=== PATIENT | male | born 2000 | race Caucasian/White ===

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

== ENCOUNTER 2021-07-25 01:18 | Inpatient (IN) | payer OTHER, SELFPAY ==
[2021-07-25] VITALS (12 sets, daily range): BP systolic 96–125; BP diastolic 51–94
[~2021-07-25] VITALS: Ht 172.7 cm; Wt 58.9 kg
[2021-07-25] MEDS ORDERED: NS 1,000 ML IV ONE (01:20)
[2021-07-25] MEDS ORDERED: diphenhydrAMINE 50MG/ML VIAL (J1200) IM ONE (01:20)
[2021-07-25] MEDS ORDERED: HALOPERIDOL 5MG/ML VIAL (J1630 PER 1) IM ONE (01:20)
[2021-07-25] MEDS ORDERED: LORazepam 2 MG/ML VIAL IM ONE (01:20)
[2021-07-25] MEDS ORDERED: LORazepam 2 MG/ML VIAL As Ordered ONE (01:21)
[2021-07-25] MEDS ORDERED: HALOPERIDOL 5MG/ML VIAL (J1630 PER 1) As Ordered ONE (01:21)
[2021-07-25] MEDS ORDERED: diphenhydrAMINE 50MG/ML VIAL (J1200) As Ordered ONE (01:21)
[2021-07-25] MEDS ORDERED: LORazepam 2 MG/ML VIAL IV STA (01:35)
[2021-07-25 01:48] LABS: BASO % 0.3 % (0.0-1.0); EOS % 0.2 % (0.0-3.0); HEMOGLOBIN 16.3 g/dl (13.5-17.5); LYMPH # 2.9 10^3/uL (1.5-5.0); LYMPH % 32.8 % (24.0-44.0); MEAN CORPUSCULAR HEMOGLOBIN 30.8 pg (27.0-33.0); MEAN CORPUSCULAR HGB CONC 34.7 g/dl (32.0-36.5); MEAN CORPUSCULAR VOLUME 88.8 fl (80.0-96.0); MONO # 0.6 10^3/uL (0.0-0.8); MONO % 7.2 % (2.0-8.0); NEUTROPHILS # 5.2 10^3/uL (1.5-8.5); NEUTROPHILS % 59.2 % (36.0-66.0); PLATELET COUNT, AUTOMATED 284 10^3/uL (150-450); RED BLOOD COUNT 5.29 10^6/uL (4.30-6.10); WHITE BLOOD COUNT 8.7 10^3/uL (4.0-10.0)
[2021-07-25] MEDS ORDERED: ETOMIDATE INJ 20MG/10ML VIAL IV STA (01:59)
[2021-07-25] MEDS ORDERED: ROCURONIUM BROMIDE 50 MG/5 ML VIAL IV SCH ×2 (02:00→03:25)
[2021-07-25] MEDS ORDERED: PROPOFOL 1,000 MG/100 ML VIAL As Ordered ONE (02:01)
[2021-07-25] MEDS: propofoL 1,000 MG in IV 1 EA IV SCH ×5 (02:02→18:22)
[2021-07-25 02:17] LABS: ACETAMINOPHEN LEVEL < 2.0 UG/ML (10.0-30.0); ALBUMIN 5.4 GM/DL (3.2-5.2); ALT/SGPT 26 U/L (12-78); BILIRUBIN,DIRECT 0.1 MG/DL (0.0-0.2); BILIRUBIN,TOTAL 0.4 MG/DL (0.2-1.0); BLOOD UREA NITROGEN 14 MG/DL (7-18); CALCIUM LEVEL 9.8 MG/DL (8.5-10.1); CARBON DIOXIDE LEVEL 24 MEQ/L (21-32); CHLORIDE LEVEL 105 MEQ/L (98-107); CPK CREATINE PHOSPHOKINASE 215 U/L (39-308); CREATININE FOR GFR 1.28 MG/DL (0.70-1.30); ETHYL ALCOHOL (ETHANOL) 0.228 % (0.000-0.010); GLOMERULAR FILTRATION RATE > 60.0 (>60); GLUCOSE, FASTING 126 MG/DL (70-100); POTASSIUM SERUM 3.4 MEQ/L (3.5-5.1); SALICYLATE LEVEL < 1.7 MG/DL (5.0-30.0); SODIUM LEVEL 145 MEQ/L (136-145); TOTAL PROTEIN 8.7 GM/DL (6.4-8.2)
[2021-07-25 02:50] LABS: ABG BASE EXCESS -3.5 (-2.0-2.0); ABG HCO3 19.4 MEQ/L (22.0-26.0); ABG O2 SATURATION 99.2 % (95.0-99.0); ABG PARTIAL PRESSURE CO2 29.5 mmHg (35.0-45.0); ABG PARTIAL PRESSURE O2 258.1 mmHg (75.0-100.0); ABG STANDARD HCO3 21.6 MEQ/L (22.0-26.0); ABG TOTAL CO2 20.3 MEQ/L (22.0-29.0); ABG pH (ARTERIAL) 7.435 UNITS (7.350-7.450)
--- NOTE | 2021-07-25 02:58 | REPVR ---
PROCEDURE INFORMATION: Exam: XR Chest Exam date and time: 07/25/2021 2:18 AM Age: 21 years old Clinical indication: Device placement; Other: Post intubation TECHNIQUE: Imaging protocol: XR of the chest. Views: 1 view. COMPARISON: No relevant prior studies available. FINDINGS: Tubes, catheters and devices: ET tube in position with the tip at the cephalad margin of the clavicular heads, approximately 5.2 cm above the chau. NG tube extending into the stomach. Lungs: Unremarkable. No consolidation. Pleural spaces: Unremarkable. No pleural effusion. No pneumothorax. Heart/Mediastinum: Unremarkable. No cardiomegaly. Bones/joints: Unremarkable. IMPRESSION: 1. ET tube with the tip at the cephalad margins of the clavicular heads, approximately 5.2 cm above the chau. 2. NG tube extending into the stomach. 3. Otherwise negative chest. Electronically signed by: Sudhakar Rincon On 07/25/2021 02:57:46 AM
--- NOTE | 2021-07-25 03:13 | REPVR ---
PROCEDURE INFORMATION: Exam: CT Head Without Contrast Exam date and time: 07/25/2021 3:05 AM Age: 21 years old Clinical indication: Injury or trauma; Fall; Blunt trauma (contusions or hematomas); Additional info: Trauma, AMS TECHNIQUE: Imaging protocol: Computed tomography of the head without contrast. Radiation optimization: All CT scans at this facility use at least one of these dose optimization techniques: automated exposure control; mA and/or kV adjustment per patient size (includes targeted exams where dose is matched to clinical indication); or iterative reconstruction. COMPARISON: No relevant prior studies available. FINDINGS: Tubes, catheters and devices: ET tube and OG tube in position. Brain: Normal. No hemorrhage. Unremarkable white matter. No mass effect. Cerebral ventricles: No ventriculomegaly. Paranasal sinuses: Visualized sinuses are unremarkable. No fluid levels. Mastoid air cells: Visualized mastoid air cells are well aerated. Bones/joints: Unremarkable. No acute fracture. Soft tissues: Slight frontal scalp soft tissue swelling with evidence of puncture wound. IMPRESSION: 1. ET tube and OG tube in position. 2. Slight midline frontal scalp soft tissue swelling with evidence of puncture wound. 3. Otherwise negative noncontrast head CT. Electronically signed by: Sudhakar Rincon On 07/25/2021 03:13:04 AM
[2021-07-25] MEDS ORDERED: NS 1,770 ML in IV 1 EA IV ONE (03:15)
[2021-07-25] MEDS ORDERED: MIDAZOLAM INJ 2MG/2ML VIAL (J2250 PER 1MG) IV ONE ×2 (03:15→04:35)
[2021-07-25] MEDS ORDERED: MIDAZOLAM HCL 100 MG in D5W 80 ML IV SCH ×2 (03:15→04:00)
[2021-07-25] MEDS ORDERED: REFRIGERATOR IV KEYS XX PRN ×2 (03:15→06:50)
--- NOTE | 2021-07-25 03:16 | REPVR ---
PROCEDURE INFORMATION: Exam: CT Cervical Spine Without Contrast Exam date and time: 07/25/2021 3:05 AM Age: 21 years old Clinical indication: Injury or trauma; Fall; Blunt trauma; Additional info: Trauma, AMS TECHNIQUE: Imaging protocol: Computed tomography images of the cervical spine without contrast. Radiation optimization: All CT scans at this facility use at least one of these dose optimization techniques: automated exposure control; mA and/or kV adjustment per patient size (includes targeted exams where dose is matched to clinical indication); or iterative reconstruction. COMPARISON: CR Chest, 1 view 07/25/2021 2:09 AM FINDINGS: Tubes, catheters and devices: ET tube and OG tube in position. Bones/joints: No acute fracture. Normal alignment. Discs/Spinal canal/Neural foramina: No significant disc protrusion. No severe spinal canal stenosis. No significant neural foraminal narrowing. Lungs: Lung apices are normal. Soft tissues: Unremarkable. IMPRESSION: 1. ET tube and OG tube in position. 2. Negative CT cervical spine. No fracture or subluxation is evident and no spinal or foraminal stenosis. Electronically signed by: Sudhakar Rincon On 07/25/2021 03:15:26 AM
[2021-07-25 04:30] LABS: AMPHETAMINES LEVEL URINE NEGATIVE (NEGATIVE); BARBITURATES URINE NEGATIVE (NEGATIVE); BENZODIAZEPINES URINE NEGATIVE (NEGATIVE); CANNABINOIDS URINE POSITIVE (NEGATIVE); COCAINE METABOLITE URINE POSITIVE (NEGATIVE); METHADONE URINE NEGATIVE (NEGATIVE); OPIATES URINE NEGATIVE (NEGATIVE); PHENCYCLIDINE URINE NEGATIVE (NEGATIVE)
[2021-07-25] MEDS ORDERED: VECURONIUM BROMIDE 10MG VIAL IV STA (04:35)
[2021-07-25 04:44] LABS: RSV AMPLIFICATION NEGATIVE (NEGATIVE)
[2021-07-25 05:19] LABS: CK-MB VALUE MASS 1.7 NG/ML (<3.6); MB/CK RELATIVE INDEX 0.79 (< OR =4); TROPONIN I < 0.02 NG/ML (< 0.10)
--- NOTE | 2021-07-25 06:59 | HPEPDOC ---
[facility] Medical History & Physical Date of Admission Jul 25, 2021 Date of Service: Jul 25, 2021 Attending Physician: YEISON YOUNGBLOOD MD History and Physical CHIEF COMPLAINT: Aggressive behavior, respiratory failure HISTORY OF PRESENT ILLNESS: This is a 21-year-old gentleman with unknown past medical problem brought into the emergency department for aggressive behavior. He was found knocking down someone's door. He was brought in by police physically restrained it. On the way to the emergency department, he was trying to escape by punching, kicking and head-banging on police car door. Upon arrival to the hospital, he required 6 security personnel to physically restrain patient. He was shouting and screaming that hospital personnel was trying to harm him. He received several large amount of haloperidol, Ativan, Benadryl without any improvement in his aggressive and impulsive behavior. Therefore, he was sedated and paralyzed for intubation. ICU was consulted. Blood work was unremarkable. He has mild lactic acidosis without elevation of CPK. Urine toxicology positive for cannabinoid and cocaine. Serum alcohol level was elevated. EKG with right bundle branch block. No evidence of prolonged QT. No family members including the one listed in the chart Sujata Pineda was able to provide any history about patient. He suffered a forehead scalp laceration which was stapled in the emergency department. PAST MEDICAL HISTORY: Cannot be obtained as patient is intubated and sedated. There is no collateral person to provide any information. PAST SURGICAL HISTORY: Cannot be obtained as patient is intubated and sedated. There is no collateral person to provide any information. SOCIAL HISTORY: Cannot be obtained as patient is intubated and sedated. There is no collateral person to provide any information. FAMILY HISTORY: Cannot be obtained as patient is intubated and sedated. There is no collateral person to provide any information. ALLERGIES: Please see below. REVIEW OF SYSTEMS: Cannot be obtained as patient is currently intubated and heavily sedated. HOME MEDICATIONS: Please see below. PHYSICAL EXAMINATION: VITAL SIGNS: Please see below. GENERAL APPEARANCE: Heavily sedated. HEENT: Intubated, no evident JVD or cervical adenopathy. Dry crusted blood in the nares and mouth. CARDIOVASCULAR: Regular S1-S2 regular rate and rhythm with no evidence of murmur. LUNGS: Clear to auscultation bilaterally. ABDOMEN: Soft nontender with active bowel sounds. MUSCULOSKELETAL: No evidence of joint effusion or joint swelling. EXTREMITIES: No evidence of finger clubbing or pedal edema. NEUROLOGICAL: Pupils are equal and reactive to light bilaterally. PSYCHIATRIC: Unable to assess. LABORATORY DATA: See below. IMAGING: CT brain was negative for intracranial pathology. Chest x-ray showed no evidence of effusion or infiltrate. Endotracheal tube in appropriate positio n. MICROBIOLOGY: Please see below. ASSESSMENT/PLAN: This is a 21-year-old gentleman with unknown past medical problem brought into the emergency department for aggressive behavior. #Acute respite failure secondary to inability to protect airway -Patient was intubated for aggressive and near homicidal behavior. Chest x-ray clear. Gas exchange is optimal. Ventilator setting: Assist control/volume control respiratory rate 14, tidal volume 450, PEEP 5, FiO2 30%. -We wait until tomorrow for possible sedation holiday. #Metabolic encephalopathy -Secondary to drug influence and alcohol intoxication. -Daily sedation holiday. #Lactic acidosis -Likely from dehydration due to poor oral intake. We will keep patient on IV fluid. Lactic acid 20. #Polysubstance abuse -He was tested positive for cannabinoid and cocaine. I also suspect he may have taken something synthetic. He will need extensive counseling once he is extubated. #Alcohol intoxication -Seizure precaution and monitor for withdrawal. DVT prophylaxis: Lovenox GI prophylaxis: Not indicated Diet: N.p.o. CODE STATUS: Full code Critical care time excluding procedure is 60 minutes. Vital Signs Vital Signs Date Time Temp Pulse Resp B/P (MAP) Pulse Ox O2 Delivery O2 Flow Rate FiO2 07/25/21 06:50 95/55 (68) 07/25/21 06:40 65 100 Ventilator 07/25/21 06:10 16 07/25/21 02:45 96.6 07/25/21 02:10 50 Laboratory Data Labs 24H Laboratory Tests 2 07/25/21 01:26: Immature Granulocyte % (Auto) 0.3, Neutrophils (%) (Auto) 59.2, Lymphocytes (%) (Auto) 32.8, Monocytes (%) (Auto) 7.2, Eosinophils (%) (Auto) 0.2, Basophils (%) (Auto) 0.3, Neutrophils # (Auto) 5.2, Lymphocytes # (Auto) 2.9, Monocytes # (Auto) 0.6, Eosinophils # (Auto) 0.0, Basophils # (Auto) 0.0, Nucleated Red Blood Cells % (auto) 0.0, Anion Gap 16, Glomerular Filtration Rate > 60.0, Lactic Acid Level 8.4*H, Calcium Level 9.8, Total Bilirubin 0.4, Direct Bilirubin 0.1, Aspartate Amino Transf (AST/SGOT) 21, Alanine Aminotransferase (ALT/SGPT) 26, Alkaline Phosphatase 140H, Total Creatine Kinase 215, Creatine Kinase MB 1.7, Creatine Kinase MB Relative Index 0.79, Troponin I < 0.02, Total Protein 8.7H, Albumin 5.4H, Albumin/Globulin Ratio 1.6, Thyroid Stimulating Hormone (TSH) 2.210, Salicylates Level < 1.7L, Urine Opiates Screen NEGATIVE, Urine Methadone Screen NEGATIVE, Acetaminophen Level < 2.0L, Urine Barbiturates Screen NEGATIVE, Urine Phencyclidine Screen NEGATIVE, Urine Amphetamines Screen NEGATIVE, Urine Benzodiazepines Screen NEGATIVE, Urine Cocaine Metabolite Screen POSITIVEH, Urine Cannabinoids Screen POSITIVEH, Ethyl Alcohol Level 0.228H 07/25/21 02:09: Bedside Glucose (Misc Panel) 77 07/25/21 02:45: Blood Gas Bicarbonate Standard 21.6L, Arterial Blood pH 7.435, Arterial Blood Partial Pressure CO2 29.5L, Arterial Blood Partial Pressure O2 258.1H, Arterial Blood Total CO2 20.3L, Arterial Blood HCO3 19.4L, Arterial Blood Base Excess - 3.5L, Arterial Blood Oxygen Saturation 99.2H 07/25/21 03:48: Coronavirus (COVID-19)(PCR) NEGATIVE, Influenza Type A (RT-PCR) NEGATIVE, Influenza Type B (RT-PCR) NEGATIVE, Respiratory Syncytial Virus (PCR) NEGATIVE 07/25/21 06:05: Lactic Acid Followup at 4 Hours 4.0*H CBC/BMP Laboratory Tests 07/25/21 01:26 Home Medications Unable to Obtain Active Prescriptions or Reported Meds Allergies Coded Allergies: Unable to Assess (Verified Allergy, Unknown, NO INFORMATION/NEXT OF KIN AVAILABLE, 07/25/21) A-FIB/CHADSVASC A-FIB History Current/History of A-Fib/PAF?: No YEISON YOUNGBLOOD MD Jul 25, 2021 06:59
[2021-07-25] MEDS ORDERED: HOME MED LIST COMPLETE! XX SCH (08:05)
[2021-07-25] MEDS: ENOXAPARIN 40MG/0.4ML SYRINGE (J1650 PER 10MG) SC SCH (09:32)
[2021-07-25] MEDS: NS 1,000 ML IV SCH ×2 (09:33→20:04)
[2021-07-25] MEDS: CHLORHEXIDINE GLUCONATE 0.12 % 15ML UDC (PERIDEX ORAL RINSE) MT SCH ×2 (09:33→20:04)
[2021-07-25] MEDS ORDERED: fentaNYL 100 MCG/2 ML INJECTION (J3010) IV PRN (09:45)
--- NOTE | 2021-07-25 10:12 | ECGEPIP ---
[facility] - ED Test Date: 2021-07-25 Pat Name: LYNN TURPIN Department: Room: [place] [address] Gender: Male Bee Breeder: NEIL : 2000 Requested By: CLIFFORD Malik Order Number: [id number] Reading MD: Brandon Gomez Measurements Intervals [place] Rate: 87 P: 81 NM: 124 QRS: 95 QRSD: 108 T: 75 QT: 374 QTc: 450 Interpretive Statements Normal sinus rhythm Rightward axis Incomplete right bundle branch block NO PRIORS FOR COMPARISON Electronically Signed on 07-25-2021 10:12:00 EST by Brandon Gomez
[2021-07-25] MEDS: MIDAZOLAM INJ 2MG/2ML VIAL (J2250 PER 1MG) IV PRN (19:32)
[2021-07-26] VITALS (24 sets, daily range): BP systolic 94–125; BP diastolic 53–80
[2021-07-26] MEDS: propofoL 1,000 MG in IV 1 EA IV SCH ×6 (01:19→22:19)
[2021-07-26] MEDS ORDERED: MIDAZOLAM HCL 100 MG in D5W 80 ML IV SCH (02:55)
[2021-07-26] MEDS: MIDAZOLAM HCL 100 MG in D5W 80 ML IV SCH (03:56)
[2021-07-26 05:45] LABS: HEMATOCRIT 36.7 % (42.0-52.0); MEAN CORPUSCULAR HEMOGLOBIN 30.6 pg (27.0-33.0); MEAN CORPUSCULAR HGB CONC 34.3 g/dl (32.0-36.5); MEAN CORPUSCULAR VOLUME 89.1 fl (80.0-96.0); PLATELET COUNT, AUTOMATED 133 10^3/uL (150-450); RED BLOOD COUNT 4.12 10^6/uL (4.30-6.10); WHITE BLOOD COUNT 11.4 10^3/uL (4.0-10.0)
[2021-07-26 06:15] LABS: ALBUMIN 3.5 GM/DL (3.2-5.2); ALT/SGPT 22 U/L (12-78); BILIRUBIN,TOTAL 0.9 MG/DL (0.2-1.0); BLOOD UREA NITROGEN 23 MG/DL (7-18); CALCIUM LEVEL 8.9 MG/DL (8.5-10.1); CARBON DIOXIDE LEVEL 25 MEQ/L (21-32); CHLORIDE LEVEL 111 MEQ/L (98-107); CREATININE FOR GFR 0.86 MG/DL (0.70-1.30); GLOMERULAR FILTRATION RATE > 60.0 (>60); GLUCOSE, FASTING 69 MG/DL (70-100); MAGNESIUM LEVEL 2.2 MG/DL (1.8-2.4); POTASSIUM SERUM 3.9 MEQ/L (3.5-5.1); SODIUM LEVEL 145 MEQ/L (136-145); TOTAL PROTEIN 5.9 GM/DL (6.4-8.2)
[2021-07-26 06:24] LABS: HEMOGLOBIN 12.6 g/dl (13.5-17.5)
[2021-07-26] MEDS: ENOXAPARIN 40MG/0.4ML SYRINGE (J1650 PER 10MG) SC SCH (08:10)
[2021-07-26] MEDS: CHLORHEXIDINE GLUCONATE 0.12 % 15ML UDC (PERIDEX ORAL RINSE) MT SCH ×2 (08:11→21:43)
[2021-07-26] MEDS: MIDAZOLAM INJ 2MG/2ML VIAL (J2250 PER 1MG) IV PRN ×4 (09:15→22:40)
[2021-07-26] MEDS: LR 1,000 ML IV SCH ×2 (09:40→23:50)
--- NOTE | 2021-07-26 12:38 | IPNPDOC ---
Subjective Date Seen The patient was seen on 07/26/21. Subjective Chief Complaint/HPI Patient remains heavily sedated and intubated. He does move all 4 extremity when coming off sedation. He does get agitated. General: Reports: ROS Unobtainable Objective Physical Examination General Exam: Positive: No Acute Distress, Other (Sedated comfortably) Eye Exam: Positive: Other Eye Symptoms (Pupils are dilated but reactive to light); Negative: Sclera icteric ENT Exam: Positive: Atraumatic Neck Exam: Positive: Supple; Negative: JVD Chest Exam: Positive: Clear to auscultation, Normal air movement; Negative: Rales, Rhonchi, Wheezing Heart Exam: Positive: Rate Normal, Regular Rhythm Abdomen Exam: Positive: Normal bowel sounds, Soft; Negative: Tenderness Extremity Exam: Negative: Clubbing, Edema Skin Exam: Positive: Other skin issue (For her scalp laceration with suture) Neuro Exam: Positive: Other (Pupils are reactive to light but very dilated.) Psych Exam: Positive: Other (Cannot be assessed) Assessment /Plan Assessment This is a 21-year-old gentleman with unknown past medical problem brought into the emergency department for aggressive behavior. Plan/VTE VTE Prophylaxis Ordered?: Yes Plan #Acute respite failure secondary to inability to protect airway -Patient was intubated for aggressive and near homicidal behavior. Chest x-ray clear. Gas exchange is optimal. Ventilator setting: Assist control/volume control respiratory rate 14, tidal volume 450, PEEP 5, FiO2 30%. -His pupils are still massively dilated but reactive to light. I highly suspect substances he abuse are still in his system. I will wait until tomorrow for sedation holiday and possible extubation. #Metabolic encephalopathy -Secondary to drug influence and alcohol intoxication. -Daily sedation holiday. #Lactic acidosis -Likely from dehydration due to poor oral intake. He has been on IV fluids 75 cc/h. Due to hyperchloremia, I have switched his fluid to lactated Ringer. Lactic acid trending down #Polysubstance abuse -He was tested positive for cannabinoid and cocaine. I also suspect he may have taken something synthetic. He will need extensive counseling once he is extubated. #Alcohol intoxication -Seizure precaution and monitor for withdrawal. #Forehead/scalp laceration from head banging -Was sutured in the emergency department. DVT prophylaxis: Lovenox GI prophylaxis: Not indicated Diet: N.p.o. CODE STATUS: Full code Critical care time excluding procedure is 25 minutes. Disposition Continue ICU care. VS, I&O, 24H, Trudi Vital Signs/I&O Vital Signs Date Time Temp Pulse Resp B/P (MAP) Pulse Ox O2 Delivery O2 Flow Rate FiO2 07/26/21 11:00 108 20 116/62 (80) Ventilator 07/26/21 10:00 95 07/26/21 08:00 98.4 I&O- Last 24 Hours up to 6 AM 07/26/21 06:00 Intake Total 3927.5 ml Output Total 1130 ml Balance 2797.5 ml Laboratory Data 24H LABS Laboratory Tests 2 07/26/21 05:20: Nucleated Red Blood Cells % (auto) 0.0, Anion Gap 9, Glomerular Filtration Rate > 60.0, Lactic Acid Level 0.9, Calcium Level 8.9, Phosphorus Level 3.0, Magnesium Level 2.2, Total Bilirubin 0.9#, Aspartate Amino Transf (AST/SGOT) 26, Alanine Aminotransferase (ALT/SGPT) 22, Alkaline Phosphatase 110, Total Creatine Kinase 462#H, Total Protein 5.9#L, Albumin 3.5#, Albumin/Globulin Ratio 1.5 CBC/BMP Laboratory Tests 07/26/21 05:20 YEISON YOUNGBLOOD MD Jul 26, 2021 12:37
[2021-07-26] MEDS: PANTOPRAZOLE 40MG VIAL (C9113 PER 1) IV SCH (13:16)
[2021-07-26] MEDS: cefTRIAXone SOD 1 GM in D5W MINI-BAG PLUS 50 ML IV SCH (17:02)
[2021-07-26 17:13] LABS: APPEARANCE, URINE HAZY (CLEAR); BACTERIA, URINE AUTO NEGATIVE (NEGATIVE); BILIRUBIN, URINE AUTO NEGATIVE (NEGATIVE); BLOOD, URINE BLOOD NEGATIVE (NEGATIVE); CALCIUM OXALATE CRYSTALS SMALL; COLOR, URINE YELLOW (YELLOW); GLUCOSE, URINE (UA) AUTO NEGATIVE (NEGATIVE); KETONE, URINE AUTO 2+ mg/dL (NEGATIVE); LEUKOCYTE ESTERASE, URINE AUTO NEGATIVE (NEGATIVE); MUCUS, URINE SMALL (NEGATIVE); NITRITE, URINE AUTO NEGATIVE (NEGATIVE); PROTEIN, URINE AUTO 1+ mg/dL (NEGATIVE); RBC, URINE AUTO 28 /HPF (0-3); SPECIFIC GRAVITY URINE AUTO 1.034 (1.002-1.035); SQUAMOUS EPITHELIAL CELL UR AU 0 /HPF (0-6); WBC, URINE AUTO 2 /HPF (0-3)
[2021-07-27] VITALS (12 sets, daily range): BP systolic 102–141; BP diastolic 52–81
[2021-07-27] MEDS ORDERED: ACETAMINOPHEN TAB 650MG DOSE (2X325MG) PO PRN (00:30)
[2021-07-27] MEDS ORDERED: fentaNYL CITRATE 1,000 MCG in NS 80 ML IV SCH (00:45)
[2021-07-27] MEDS: MIDAZOLAM INJ 2MG/2ML VIAL (J2250 PER 1MG) IV PRN ×5 (03:26→08:35)
[2021-07-27 04:30] LABS: HEMATOCRIT 33.1 % (42.0-52.0); HEMOGLOBIN 11.4 g/dl (13.5-17.5); MEAN CORPUSCULAR HEMOGLOBIN 30.7 pg (27.0-33.0); MEAN CORPUSCULAR HGB CONC 34.4 g/dl (32.0-36.5); MEAN CORPUSCULAR VOLUME 89.2 fl (80.0-96.0); PLATELET COUNT, AUTOMATED 132 10^3/uL (150-450); RED BLOOD COUNT 3.71 10^6/uL (4.30-6.10); WHITE BLOOD COUNT 10.8 10^3/uL (4.0-10.0)
[2021-07-27] MEDS: MIDAZOLAM HCL 100 MG in D5W 80 ML IV SCH (04:50)
[2021-07-27 05:03] LABS: ALT/SGPT 19 U/L (12-78); BILIRUBIN,TOTAL 0.5 MG/DL (0.2-1.0); BLOOD UREA NITROGEN 20 MG/DL (7-18); CALCIUM LEVEL 8.2 MG/DL (8.5-10.1); CARBON DIOXIDE LEVEL 27 MEQ/L (21-32); CHLORIDE LEVEL 107 MEQ/L (98-107); CREATININE FOR GFR 0.79 MG/DL (0.70-1.30); GLOMERULAR FILTRATION RATE > 60.0 (>60); GLUCOSE, FASTING 95 MG/DL (70-100); POTASSIUM SERUM 3.7 MEQ/L (3.5-5.1); SODIUM LEVEL 143 MEQ/L (136-145); TOTAL PROTEIN 5.5 GM/DL (6.4-8.2)
[2021-07-27] MEDS: cefTRIAXone SOD 1 GM in D5W MINI-BAG PLUS 50 ML IV SCH (05:29)
[2021-07-27] MEDS: ENOXAPARIN 40MG/0.4ML SYRINGE (J1650 PER 10MG) SC SCH (08:36)
[2021-07-27] MEDS: CHLORHEXIDINE GLUCONATE 0.12 % 15ML UDC (PERIDEX ORAL RINSE) MT SCH (08:36)
[2021-07-27] MEDS: PANTOPRAZOLE 40MG VIAL (C9113 PER 1) IV SCH (08:36)
[2021-07-27] MEDS ORDERED: FOLIC ACID 1 MG TAB PO SCH (09:00)
[2021-07-27] MEDS ORDERED: THIAMINE 100 MG TAB PO SCH (09:00)
[2021-07-27] MEDS ORDERED: MULTIVITAMINS/MINERALS THERAP 1 TAB PO SCH (09:00)
[2021-07-27] MEDS: LR 1,000 ML IV SCH (11:00)
--- NOTE | 2021-07-27 12:34 | IPNPDOC ---
Subjective Date Seen The patient was seen on 07/27/21. Subjective Chief Complaint/HPI During sedation holiday this morning, patient was appropriate and following commands. He did well on spontaneous breathing trial was subsequently extubated. He is complaining of sore throat and hoarseness of voice. General: Reports: ROS Unobtainable Objective Physical Examination General Exam: Positive: Alert, Cooperative (Somewhat cooperative), No Acute Distress Eye Exam: Positive: Other Eye Symptoms (Pupils are dilated but reactive to light); Negative: Sclera icteric ENT Exam: Positive: Atraumatic Neck Exam: Positive: Supple; Negative: JVD Chest Exam: Positive: Clear to auscultation, Normal air movement; Negative: Rales, Rhonchi, Wheezing Heart Exam: Positive: Rate Normal, Regular Rhythm Abdomen Exam: Positive: Normal bowel sounds, Soft; Negative: Tenderness Extremity Exam: Negative: Clubbing, Edema Skin Exam: Positive: Other skin issue (Forehead scalp laceration with suture) Neuro Exam: Positive: Strength at 5/5 X4 ext, Other Psych Exam: Positive: Anxiety Assessment /Plan Assessment This is a 21-year-old gentleman with no significant past medical problem brought into the emergency department for aggressive behavior. Plan/VTE VTE Prophylaxis Ordered?: Yes Plan #Acute respite failure secondary to inability to protect airway -Patient was intubated for aggressive behavior. Chest x-ray clear. Gas exchange is optimal. Ventilator setting: Assist control/volume control respiratory rate 14, tidal volume 450, PEEP 5, FiO2 30%. -He tolerated sedation holiday, following commands, tolerated spontaneous breathing trial and subsequently extubated to room air today. #Metabolic encephalopathy -Secondary to drug influence and alcohol intoxication. -He is awake and alert but agitated. Will caution for drugs and alcohol withdrawal. #Lactic acidosis -Likely from dehydration due to poor oral intake. He has been on IV fluids 75 cc/h. #Polysubstance abuse -He was tested positive for cannabinoid and cocaine. His serum alcohol level was also elevated. -Caution for substance withdrawal. #Alcohol intoxication -Seizure precaution and monitor for withdrawal. -May consider Ativan as needed if there is clinical evidence of alcohol withdrawal. #Forehead/scalp laceration from head banging -Was sutured in the emergency department. #Mild rhabdomyolysis -Likely from cocaine induced. CPK level slightly trending up. Will increase lactated Ringer from 75 cc/h to 150 cc/h. #Fever -Unclear whether it is related to ongoing rhabdomyolysis versus substance withdrawal versus actual infection. -Blood and sputum culture has been sent. Urinalysis does not indicate evidence of infection. -I have empirically started him on ceftriaxone day#2. DVT prophylaxis: Lovenox GI prophylaxis: Not indicated Diet: Advance diet as tolerated CODE STATUS: Full code Critical care time excluding procedure is 25 minutes. Disposition Transfer out of ICU. VS, I&O, 24H, Fishbone Vital Signs/I&O Vital Signs Date Time Temp Pulse Resp B/P (MAP) Pulse Ox O2 Delivery O2 Flow Rate FiO2 07/27/21 09:00 120 19 110/67 (81) 92 Room Air 07/27/21 08:45 40 07/27/21 08:00 99.8 I&O- Last 24 Hours up to 6 AM 07/27/21 06:00 Intake Total 2001 ml Output Total 1260 ml Balance 741 ml Laboratory Data 24H LABS Laboratory Tests 2 07/26/21 16:38: Urine Color YELLOW, Urine Appearance HAZY, Urine pH 5.0, Urine Specific [place] 1.034, Urine Protein 1+H, Urine Glucose (Auto)(UA) NEGATIVE, Urine Ketones (Auto) 2+H, Urine Blood NEGATIVE, Urine Nitrite NEGATIVE, Urine Bilirubin NEGATIVE, Urine Urobilinogen 2.0H, Urine Leukocyte Esterase (Auto) NEGATIVE, Urine WBC (Auto) 2, Urine RBC (Auto) 28H, Urine Hyaline Casts (Auto) 0, Urine Bacteria (Auto) NEGATIVE, Urine Squamous Epithelial Cells 0, Urine Calcium Oxalate Cryst (Auto) SMALL, Urine Mucus (Auto) SMALL, Urine Sperm (Auto) 07/26/21 22:02: Bedside Glucose (Misc Panel) 76 07/27/21 04:17: Nucleated Red Blood Cells % (auto) 0.0, Anion Gap 9, Glomerular Filtration Rate > 60.0, Calcium Level 8.2L, Total Bilirubin 0.5, Aspartate Amino Transf (AST/SGOT) 26, Alanine Aminotransferase (ALT/SGPT) 19, Alkaline Phosphatase 97, Total Creatine Kinase 586H, Total Protein 5.5L, Albumin 3.0L, Albumin/Globulin Ratio 1.2 CBC/BMP Laboratory Tests 07/27/21 04:17 Microbiology Microbiology 07/27/21 Gram Stain - Final, Resulted 07/27/21 Sputum Culture, Resulted Pending 07/26/21 Blood Culture, Received Pending YEISON YOUNGBLOOD MD Jul 27, 2021 12:34
--- NOTE | 2021-07-27 13:43 | IPNPDOC ---
Date Seen The patient was seen on 07/27/21. Progress Note SUBJECTIVE: Extubated successfully 07/27/2021. Service transferred to medicine after. Patient spiked a fever last night and was pancultured, pending results. Ceftriaxone was started. Patient denies chest pain, shortness of breath but complains of some soreness of his throat post extubation. He denies abdominal pain, chills. OBJECTIVE: VITAL SIGNS: Please see below PHYSICAL EXAMINATION: CONSTITUTIONAL: No acute distress, odd behavior but AAO x 3 EYES: PERRLA, EOM intact HENT, MOUTH: Normocephalic, atraumatic, moist mucous membranes NECK: SUPPLE, no JVD, no lymphadenopathy, no carotid bruit CV: Regular rate and rhythm, S1S2 normal, no murmurs/rubs/gallops RESPIRATORY: Clear to auscultation bilaterally, no rales/rhonchi/wheezes GI: BS positive in 4 quadrants, soft, nontender, nondistended, no rebound or guarding, no organomegaly : Deferred MUSCULOSKELETAL: Normal ROM. No cyanosis, clubbing, swelling, joint deformity, extremity edema INTEGUMENTARY: Intact, no rashes, no lesions, no erythema NEUROLOGIC: Cranial Nerves II-XII are intact, no focal deficits CURRENT MEDICATIONS: Please see below LABORATORY DATA: Please see below MICRO: Sputum Cx and GS: QUALITY: GOOD MANY WBCS MANY GRAM POSITIVE COCCI IN CLUSTERS AND CHAINS UA neg Blood culture: pending IMAGING: See chart ASSESSMENT: This is a 21-year-old gentleman with no significant past medical problem brought into the emergency department for aggressive behavior, intubated and later extubated on 07/27/21. Transferred from ICU to [address] [place] [address] today for further care. PLAN: #Fever -T max 101 overnight. -Unclear whether it is related to ongoing rhabdomyolysis vs substance withdrawal vs actual infection. -Blood and sputum culture has been sent. UA neg -May consider repeat CXR -On ceftriaxone day#2 #Acute respite failure secondary to inability to protect airway- resolved -Patient was intubated for aggressive behavior. -Chest x-ray clear. -He tolerated sedation holiday, following commands, tolerated spontaneous breathing trial and subsequently extubated to room air today. #Metabolic encephalopathy -Secondary to drug influence and alcohol intoxication. -He is awake and alert but agitated. Will caution for drugs and alcohol withdrawal. #Lactic acidosis -Likely from dehydration due to poor oral intake. He has been on IV fluids 75 cc/h. #Polysubstance abuse -He was tested positive for cannabinoid and cocaine. His serum alcohol level was also elevated. -Caution for substance withdrawal. #Alcohol intoxication -Seizure precaution and monitor for withdrawal. -May consider Ativan as needed if there is clinical evidence of alcohol withdrawal. -CIWA #Forehead/scalp laceration from head banging -Was sutured in the emergency department. #Mild rhabdomyolysis -Likely from cocaine induced. CPK level slightly trending up. Increased lactated Ringer from 75 cc/h to 150 cc/h today DVT prophylaxis: Lovenox GI prophylaxis: Not indicated Diet: Advance diet as tolerated CODE STATUS: Full code DISPOSITION: PT/OT. If odd behaviors continue, consider psych consult. VS, I&O, 24H, Fishbone Vital Signs/I&O Vital Signs Date Time Temp Pulse Resp B/P (MAP) Pulse Ox O2 Delivery O2 Flow Rate FiO2 07/27/21 13:00 98.4 102 21 141/79 (99) 100 Room Air 07/27/21 08:45 40 I&O- Last 24 Hours up to 6 AM 07/27/21 06:00 Intake Total 2001 ml Output Total 1260 ml Balance 741 ml Laboratory Data 24H LABS Laboratory Tests 2 07/26/21 16:38: Urine Color YELLOW, Urine Appearance HAZY, Urine pH 5.0, Urine Specific [place] 1.034, Urine Protein 1+H, Urine Glucose (Auto)(UA) NEGATIVE, Urine Ketones (Auto) 2+H, Urine Blood NEGATIVE, Urine Nitrite NEGATIVE, Urine Bilirubin NEGATIVE, Urine Urobilinogen 2.0H, Urine Leukocyte Esterase (Auto) NEGATIVE, Urine WBC (Auto) 2, Urine RBC (Auto) 28H, Urine Hyaline Casts (Auto) 0, Urine Ba cteria (Auto) NEGATIVE, Urine Squamous Epithelial Cells 0, Urine Calcium Oxalate Cryst (Auto) SMALL, Urine Mucus (Auto) SMALL, Urine Sperm (Auto) 07/26/21 22:02: Bedside Glucose (Misc Panel) 76 07/27/21 04:17: Nucleated Red Blood Cells % (auto) 0.0, Anion Gap 9, Glomerular Filtration Rate > 60.0, Calcium Level 8.2L, Total Bilirubin 0.5, Aspartate Amino Transf (AST/SGOT) 26, Alanine Aminotransferase (ALT/SGPT) 19, Alkaline Phosphatase 97, Total Creatine Kinase 586H, Total Protein 5.5L, Albumin 3.0L, Albumin/Globulin Ratio 1.2 CBC/BMP Laboratory Tests 07/27/21 04:17 Microbiology Microbiology 07/27/21 Gram Stain - Final, Resulted 07/27/21 Sputum Culture, Resulted Pending 07/26/21 Blood Culture, Received Pending Selma Mckeon MD Jul 27, 2021 13:43
[2021-07-27] MEDS ORDERED: LORazepam 2 MG TAB PO PRN (13:45)
[2021-07-27] MEDS ORDERED: LEVO500T3 PO (14:45)
--- NOTE | 2021-07-27 14:51 | DS.PDOC ---
Discharge Summary General Date of Admission Jul 25, 2021 at 06:48 Date of Discharge 07/27/21 Attending Physician: Selma Mckeon MD Discharge Summary DISCHARGE SUMMARY ADMITTING DIAGNOSES: #Acute respite failure secondary to inability to protect airway #Metabolic encephalopathy #Lactic acidosis #Polysubstance abuse #Alcohol intoxication DISCHARGE DIAGNOSES: COMPLICATIONS/CHIEF COMPLAINT: Alcohol Intoxication,Ams Associated W Intoxication. HISTORY OF PRESENT ILLNESS: This is a 21-year-old gentleman with unknown past medical problem brought into the emergency department for aggressive behavior. He was found knocking down someone's door. He was brought in by police ph ysically restrained it. On the way to the emergency department, he was trying to escape by punching, kicking and head-banging on police car door. HOSPITAL COURSE: Upon arrival to the hospital, he required 6 security personnel to physically restrain patient. He was shouting and screaming that hospital personnel was trying to harm him. He received several large amount of haloperidol, Ativan, B enadryl without any improvement in his aggressive and impulsive behavior. Therefore, he was sedated and paralyzed for intubation. ICU was consulted. Blood work was unremarkable. He has mild lactic acidosis without elevation of CPK. Urine toxicology positive for cannabinoid and cocaine. Serum alcohol level was elevated. EKG with right bundle branch block. No evidence of prolonged QT. No family members including the one listed in the chart Sujata Pineda was able to provide any history about patient. He suffered a forehead scalp laceration which was stapled in the emergency department. The following issues were addressed and managed during his hospitalization. #Fever -T max 101 overnight 07/26- -Unclear whether it is related to ongoing rhabdomyolysis vs substance withdrawal vs actual infection. -Blood and sputum culture has been sent. UA neg -On ceftriaxone day#2 #Acute respite failure secondary to inability to protect airway- resolved -Patient was intubated for aggressive behavior. -Chest x-ray clear. -He tolerated sedation holiday, following commands, tolerated spontaneous breathing trial and subsequently extubated to room air 07/27/21. #Metabolic encephalopathy -Secondary to drug influence and alcohol intoxication. -He is awake and alert but agitated. Will caution for drugs and alcohol withdrawal. #Lactic acidosis -Likely from dehydration due to poor oral intake. He has been on IV fluids 75 cc/h. #Polysubstance abuse -He was tested positive for cannabinoid and cocaine. His serum alcohol level was also elevated. -Caution for substance withdrawal. #Alcohol intoxication -Seizure precaution and monitor for withdrawal. -May consider Ativan as needed if there is clinical evidence of alcohol withdrawal. -CIWA #Forehead/scalp laceration from head banging -Was sutured in the emergency department. #Mild rhabdomyolysis -Likely from cocaine induced. CPK level slightly trending up. Increased lactated Ringer from 75 cc/h to 150 cc/h today I had gone to assess the patient with nurse after arriving to [address] after transferring there from ICU. He had odd behavior but was awake, alert and oriented x 3, answering questions appropriately. After my assessment and leaving the floor, I received a call that Mr. Christiansen ripped his IV out and was insisting on leaving AMA. Risks were discussed with patient in detail. AMA form was signed. 7 days of levofloxacin was sent to pharmacy as patient had just spiked fevers and I did n't want him to be without any medications. His girlfriend later came to pick him up from the hospital after leaving AMA. DISCHARGE MEDICATIONS: Please see below. ALLERGIES: Please see below. PHYSICAL EXAMINATION Prior to leaving AMA: vs: sTABLE on RA CONSTITUTIONAL: No acute distress, odd behavior but AAO x 3 EYES: PERRLA, EOM intact HENT, MOUTH: Large sutured laceration on anterior forehead, moist mucous membranes NECK: SUPPLE, no JVD, no lymphadenopathy, no carotid bruit CV: Regular rate and rhythm, S1S2 normal, no murmurs/rubs/gallops RESPIRATORY: Clear to auscultation bilaterally, no rales/rhonchi/wheezes GI: BS positive in 4 quadrants, soft, nontender, nondistended, no rebound or guarding, no organomegaly : Deferred MUSCULOSKELETAL: Normal ROM. No cyanosis, clubbing, swelling, joint deformity, extremity edema INTEGUMENTARY: Intact, no rashes, no lesions, no erythema NEUROLOGIC: Cranial Nerves II-XII are intact, no focal deficits LABORATORY DATA: Please see below. MICRO: Sputum Cx and GS: QUALITY: GOOD MANY WBCS MANY GRAM POSITIVE COCCI IN CLUSTERS AND CHAINS UA neg Blood culture: pending IMAGING: See chart DISPOSITION: LEFT AMA DISCHARGE INSTRUCTIONS: 1. 7 days of antibiotic sent to pharmacy after leaving AMA 2. Advised that if fever, shortness of breath, lightheadedness, chest pain should arise then to contact a medical professional immediately. DISCHARGE CONDITION: Guarded TIME SPENT ON DISCHARGE: 35 minutes. Vital Signs/I&Os Vital Signs Date Time Temp Pulse Resp B/P (MAP) Pulse Ox O2 Delivery O2 Flow Rate FiO2 07/27/21 13:00 98.4 102 21 141/79 (99) 100 Room Air 07/27/21 08:45 40 I&O- Last 24 Hours up to 6 AM 07/27/21 06:00 Intake Total 2001 ml Output Total 1260 ml Balance 741 ml Laboratory Data Labs 24H Laboratory Tests 2 07/26/21 16:38: Urine Color YELLOW, Urine Appearance HAZY, Urine pH 5.0, Urine Specific [place] 1.034, Urine Protein 1+H, Urine Glucose (Auto)(UA) NEGATIVE, Urine Ketones (Aut o) 2+H, Urine Blood NEGATIVE, Urine Nitrite NEGATIVE, Urine Bilirubin NEGATIVE, Urine Urobilinogen 2.0H, Urine Leukocyte Esterase (Auto) NEGATIVE, Urine WBC (Auto) 2, Urine RBC (Auto) 28H, Urine Hyaline Casts (Auto) 0, Urine Bacteria (Auto) NEGATIVE, Urine Squamous Epithelial Cells 0, Urine Calcium Oxalate Cryst (Auto) SMALL, Urine Mucus (Auto) SMALL, Urine Sperm (Auto) 07/26/21 22:02: Bedside Glucose (Misc Panel) 76 07/27/21 04:17: Nucleated Red Blood Cells % (auto) 0.0, Anion Gap 9, Glomerular Filtration Rate > 60.0, Calcium Level 8.2L, Total Bilirubin 0.5, Aspartate Amino Transf (AST/SGOT) 26, Alanine Aminotransferase (ALT/SGPT) 19, Alkaline Phosphatase 97, Total Creatine Kinase 586H, Total Protein 5.5L, Albumin 3.0L, Albumin/Globulin Ratio 1.2 CBC/BMP Laboratory Tests 07/27/21 04:17 FSBS Laboratory Tests Test 07/26/21 22:02 Range/Units Bedside Glucose (Misc Panel) 76 70-105 MG/DL Microbiology Microbiology 07/27/21 Gram Stain - Final, Resulted 07/27/21 Sputum Culture, Resulted Pending 07/26/21 Blood Culture, Received Pending Discharge Medications Scheduled Levofloxacin (Levofloxacin) 500 Mg Tablet, 500 MG PO DAILY Allergies Coded Allergies: shellfish derived (Verified Allergy, Unknown, 07/26/21) Selma Mckeon MD Jul 27, 2021 14:51
== END 2021-07-27 13:55 | disposition left against medical advice (07) | DRG 133 ==
LOC: M ED 01:18 → M ED INP 06:48 → ENRESERV 10:06 → M PCU 11:58 → M MS5PR 07-27 12:46
PROVIDERS: ADMIT Internal Medicine Critical Care Medicine; ATTEND Internal Medicine
PROC: 5A1945Z Respiratory Ventilation, 24-96 Consecutive Hours (ICD-10-PCS; principal; 2021-07-25)
DX: J96.00 Acute respiratory failure, unspecified whether with hypoxia or hypercapnia (principal); G92.8 Other toxic encephalopathy; E87.2 Acidosis; F10.121 Alcohol abuse with intoxication delirium; F14.121 Cocaine abuse with intoxication with delirium; F12.121 Cannabis abuse with intoxication delirium; S01.01XA Laceration without foreign body of scalp, initial encounter; W22.8XXA Striking against or struck by other objects, initial encounter; Y92.9 Unspecified place or not applicable; R45.6 Violent behavior; M62.82 Rhabdomyolysis; Z78.1 Physical restraint status; R50.9 Fever, unspecified; Z20.822 Contact with and (suspected) exposure to COVID-19; Z91.013 Allergy to seafood

== ENCOUNTER 2024-01-18 18:28 | Emergency (ER) | payer OTHER, SELFPAY ==
[~2024-01-18] VITALS: Ht 177.8 cm; Wt 79.0 kg
[~2024-01-18 18:28] MED LIST: LEVO1TAB39 PO
[2024-01-18 18:29] VITALS: BP 105/57; TEMP 97.7; O2SAT 99
[2024-01-18] MEDS: KETOROLAC 30 MG/ML 1ML VIAL IM ONE (20:41)
[2024-01-18] MEDS ORDERED: NAPR-837 PO (23:28)
[2024-01-19 00:42] LABS: BASO % 0.4 % (0.0-1.0); EOS # 0.2 10^3/uL (0.0-0.5); HEMATOCRIT 38.8 % (42.0-52.0); HEMOGLOBIN 13.3 g/dl (13.5-17.5); LYMPH # 2.5 10^3/uL (1.5-5.0); LYMPH % 27.9 % (24.0-44.0); MEAN CORPUSCULAR HEMOGLOBIN 30.8 pg (27.0-33.0); MEAN CORPUSCULAR HGB CONC 34.3 g/dl (32.0-36.5); MEAN CORPUSCULAR VOLUME 89.8 fl (80.0-96.0); MONO % 10.9 % (2.0-8.0); NEUTROPHILS # 5.2 10^3/uL (1.5-8.5); NEUTROPHILS % 58.5 % (36.0-66.0); PLATELET COUNT, AUTOMATED 206 10^3/uL (150-450); RED BLOOD COUNT 4.32 10^6/uL (4.30-6.10); WHITE BLOOD COUNT 8.9 10^3/uL (4.0-10.0)
[2024-01-19 00:50] LABS: ERYTHROCYTE SEDIMENTATION RATE 4 mm/hr (0-15)
[2024-01-19 01:04] LABS: ALBUMIN 3.5 G/DL (3.2-5.2); ALKALINE PHOSPHATASE 120 U/L (46-116); ALT/SGPT 24 U/L (7.0-40); AST/SGOT 16 U/L (<34); BILIRUBIN,TOTAL 0.2 MG/DL (0.3-1.2); BLOOD UREA NITROGEN 17 MG/DL (9-23); CARBON DIOXIDE LEVEL 28 MMOL/L (20-31); CHLORIDE LEVEL 106 MMOL/L (98-107); CREATININE FOR GFR 0.87 MG/DL (0.70-1.30); GLOMERULAR FILTRATION RATE > 60.0 (>60); GLUCOSE, FASTING 94 MG/DL (60-100); POTASSIUM SERUM 4.3 MMOL/L (3.5-5.1); SODIUM LEVEL 139 MMOL/L (136-145)
== END 2024-01-19 01:58 | disposition home or self-care (01) ==
LOC: M ED 18:28
DX: S73.192A Other sprain of left hip, initial encounter (principal); Y92.9 Unspecified place or not applicable; Y93.9 Activity, unspecified; Y99.9 Unspecified external cause status; F17.290 Nicotine dependence, other tobacco product, uncomplicated; F12.10 Cannabis abuse, uncomplicated; Z91.030 Bee allergy status; Z91.013 Allergy to seafood; Z79.899 Other long term (current) drug therapy
CPT/HCPCS: 72220; 73502; 73721; 80047; 80053; 80179; 85025; 85652; 86140; 96372; 99283; J1885